=== PATIENT | male | born 1960 ===

== ENCOUNTER 2017-06-05 09:15 | Day surgery (SDC) | payer MEDICARE ==
[~2017-06-05] VITALS: Ht 170.2 cm; Wt 79.4 kg
[~2017-06-05 09:15] MED LIST: ALBU90OI6; ASPI81CH PO; ATOR20 PO; HYDCHL25 PO; Lisinopril2.5 MG PO
== END 2017-06-05 22:36 | disposition home or self-care (01) ==
LOC: ORSCMMR 09:15 → ORD 10:30 → ORSCMMR 22:36
PROVIDERS: Internal Medicine Gastroenterology
PROC: 0DBL8ZX Excision of Transverse Colon, Via Natural or Artificial Opening Endoscopic, Diagnostic (ICD-10-PCS; principal; 2017-06-05 10:30)
PROC: 0DBH8ZX Excision of Cecum, Via Natural or Artificial Opening Endoscopic, Diagnostic (ICD-10-PCS; principal; 2017-06-05 10:30)
PROC: 0DBN8ZX Excision of Sigmoid Colon, Via Natural or Artificial Opening Endoscopic, Diagnostic (ICD-10-PCS; principal; 2017-06-05 10:30)
DX: K62.5 Hemorrhage of anus and rectum (principal); K63.5 Polyp of colon; D12.0 Benign neoplasm of cecum; D12.3 Benign neoplasm of transverse colon; K64.8 Other hemorrhoids; E78.00 Pure hypercholesterolemia, unspecified; I10 Essential (primary) hypertension; Z79.82 Long term (current) use of aspirin; Z79.899 Other long term (current) drug therapy
CPT/HCPCS: 88305; J7120